=== PATIENT | male | born 1990 | race Caucasian/White ===

== ENCOUNTER 2017-06-23 23:09 | Emergency (ER) | payer SELFPAY ==
[~2017-06-23] VITALS: Ht 170.2 cm; Wt 85.7 kg
[2017-06-23 23:23] VITALS: BP 168/97
--- NOTE | 2017-06-23 23:42 | NUR ---
Patient ambulated to bed 03.
[2017-06-23] MEDS ORDERED: ASPIRIN 325 MG TAB PO ONE (23:45)
--- NOTE | 2017-06-23 23:45 | NUR ---
27 Y/O M W/C/O CAN'T FOCUS,C/O DROWSINESS, EYES HEAVY TO OPEN SINCE 2129. PT C/O CHEST PAIN, TACHY, EKG DONE ON TRIAGE, SINUS TACHY. PT ON CARDIAC ,MONITOR.ER MD MADE AWARE. DENIES DRUG USE OR ALCOHOL USE.
--- NOTE | 2017-06-23 23:50 | NUR ---
BRIAN KNAPP AT BEDSIDE EVALUATING PT.
[2017-06-24] LABS: HEMATOCRIT 49.9 % (36-52); HEMOGLOBIN 16.4 g/dL (12.0-18.0); MEAN CORPUSCULAR HEMOGLOBIN 31 pg (27-31); MEAN CORPUSCULAR HGB CONC 33 g/dL (33-37); MEAN CORPUSCULAR VOLUME 96 fL (80-94); PLATELET COUNT (AUTO) 196 K/uL (140-450); RED BLOOD CELL COUNT(AUTO) 5.22 MIL/uL (4.20-6.10); RED CELL DISTRIBUTION WIDTH 13.3 % (11.6-13.7); WHITE BLOOD COUNT (AUTO) 5.7 K/uL (4.8-10.8)
[2017-06-24 00:10] LABS: EOSINOPHILS % (MANUAL) 3 % (0-4); LYMPHOCYTES % (MANUAL) 39 % (20-46); MONOCYTES % (MANUAL) 6 % (5-12)
[2017-06-24 00:11] LABS: ANION GAP 9.6 (8-16); CARBON DIOXIDE 28.1 mmol/L (21-32); CHLORIDE 104 mmol/L (98-107); GFR ARICAN-AMERICAN 114 mL/min (>90); GLUCOSE 113 mg/dL (74-106); POTASSIUM 3.7 mmol/L (3.5-5.1); SODIUM SERUM 138 mmol/L (136-145); UREA NITROGEN, BLOOD 10 mg/dL (7-18)
[2017-06-24 00:25] LABS: ALBUMIN 3.9 g/dL (3.4-5.0); ASPARTATE AMINOTRANSFERASE 34 U/L (15-37); THYROID STIMULATING HORMONE 0.76 uIU/mL (0.34-3.74); TOTAL BILIRUBIN 0.3 mg/dL (0.0-1.0)
[2017-06-24 00:26] LABS: ACETAMINOPHEN < 0.5 ug/ml (10-30); SALICYLATE < 2.8 mg/dL (2.8-20.0)
[2017-06-24 00:36] LABS: BARBITURATE, URINE NEG. ng/ml (NEG <=200); BENZODIAZEPINE, URINE NEG. ng/mL (NEG <=200); CANNABINOID, URINE POS. ng/mL (NEG <=50); COCAINE, URINE POS. ng/mL (NEG <=300); OPIATE, URINE NEG. ng/mL (NEG <=2000); PHENCYCLIDINE SCREEN,URINE NEG. ng/mL (NEG <=25)
[2017-06-24] MEDS ORDERED: LORazepam 2 MG/ML VIAL IVP ONE (01:00)
[2017-06-24] MEDS ORDERED: NACL 0.9% 1,000 ML IV ONE (01:00)
--- NOTE | 2017-06-24 01:42 | NUR ---
PT RESTING IN BED, SINUS RHYTHM, VSS, NO S/S OF DISTRESS NOTED AT THE MOMENT.
[2017-06-24 01:48] VITALS: BP 128/79
--- NOTE | 2017-06-24 01:48 | NUR ---
Patient discharged with v/s stable. Written and verbal after care instructions given and explained. Patient verbalized understanding. Ambulatory with steady gait. All questions addressed prior to discharge. Advised to follow up with PMD. PER PT FAMILY WILL PICK HIM UP, AWATING IN BED.
== END 2017-06-24 01:48 | disposition home or self-care (01) ==
LOC: MED 23:09
DX: R07.89 Other chest pain (principal); F14.10 Cocaine abuse, uncomplicated
CPT/HCPCS: 36415; 71010; 80053; 80305; 84443; 84484; 85025; 93005; 96374; 99285; G0480; G0482; J2060; J7030; Q0092